=== PATIENT | male | born 1960 | race Caucasian/White ===

== ENCOUNTER 2022-11-06 14:47 | Emergency (ER) | payer OTHER ==
[2022-11-06] MEDS ORDERED: Sodium Chloride 0.9% 10 ML Syringe FLUSH ONE (15:23)
[2022-11-06] MEDS ORDERED: Iopamidol 612 MG/ML 100 ML Bottle IVPUSH ONE (15:23)
[2022-11-06] MEDS ORDERED: Iopamidol 612 MG/ML 50 ML SDV IVPUSH ONE (15:24)
[2022-11-06 15:53] LABS: ESTIMATED GFR 75 mL/min (>60)
[2022-11-06] MEDS ORDERED: Potassium Chloride 20 MEQ Tab.ER PO ONE (16:20)
== END 2022-11-06 17:55 | disposition home or self-care (01) ==
LOC: JD.ED 14:47
DX: Z04.1 Encounter for examination and observation following transport accident (principal)
CPT/HCPCS: 36415; 70450; 71260; 72125; 74177; 80053; 81003; 85025; 99284; A9270; J3490; Q9967